=== PATIENT | female | born 1970 | race Caucasian/White ===

== ENCOUNTER 2019-07-01 13:37 | Emergency (ER) | payer BC ==
[~2019-07-01] VITALS: Ht 170.2 cm; Wt 62.1 kg
[2019-07-01] MEDS ORDERED: DEXAMETHASONE 4 MG TABLET PO ONE (15:00)
[2019-07-01] MEDS ORDERED: MECLIZINE 12.5 MG TABLET. PO ONE (15:00)
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
[2019-07-01] MEDS ORDERED: ORPH-16 PO (16:58)
[2019-07-01] MEDS ORDERED: NAPR-695 PO (16:58)
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
[2019-07-01 17:10] VITALS: BP 141/35
== END 2019-07-01 17:06 | disposition home or self-care (01) ==
LOC: ER 13:37
DX: M54.2 Cervicalgia (principal); M54.5 Low back pain; R42 Dizziness and giddiness; F17.210 Nicotine dependence, cigarettes, uncomplicated; Z88.0 Allergy status to penicillin; Y08.89XA Assault by other specified means, initial encounter; Y93.89 Activity, other specified; Y92.89 Other specified places as the place of occurrence of the external cause; Y99.8 Other external cause status
CPT/HCPCS: 70450; 72125; 99284; J8540; J8597

== ENCOUNTER 2019-08-07 18:00 | Emergency (ER) | payer BC ==
[~2019-08-07] VITALS: Ht 170.2 cm; Wt 62.1 kg
[~2019-08-07 18:00] MED LIST: NAPR-695 PO; ORPH-16 PO
[2019-08-07 18:05] VITALS: BP 114/77
--- NOTE | 2019-08-07 18:29 | PHYS DOC ---
Past History Past Medical History: Other Additional Past Medical Histor: epilepsy while Past Surgical History: Tubal ligation Smoking: Cigarettes Alcohol Use: None Drug Use: None Adult General Chief Complaint Chief Complaint: UPPER EXTREMITY PAIN [facility] HPI 49-year-old female presents with left shoulder pain and left hand numbness. The patient has had intermittent trouble with her neck mostly when she first wakes up in the morning for a few years. It is a little bit stiff but usually improves throughout the day. Over the last 4 days, the patient has had persistent left sided shoulder pain in the posterior aspect leading up to the neck. On the first day she had neck pain, the shoulder pain started after that. She is also noticed a decrease in strength in her left hand as well as a tingling sensation in her left fourth and fifth digit. The pain is a cramping and it radiates down her arm. Since it has not gone away as it usually does, she thought she should have it evaluated. She has not had any imaging of her neck, shoulder, or arm. She has not done any physical therapy. She has no known injuries. She denies trauma or falls. She denies fever or chills. Review of Systems Review of Systems Constitutional: Denies fever or chills [] Eyes: Denies change in visual acuity, redness, or eye pain [] HENT: Denies nasal congestion or sore throat [] Respiratory: Denies cough or shortness of breath [] Cardiovascular: No additional information not addressed in HPI [] GI: Denies abdominal pain, nausea, vomiting, bloody stools or diarrhea [] : Denies dysuria or hematuria [] Musculoskeletal: Left shoulder pain[] Integument: Denies rash or skin lesions [] Neurologic: Decreased strength in the left hand. Tingling left fourth and fifth digit. Denies headache. [] Endocrine: Denies polyuria or polydipsia [] All other systems were reviewed and found to be within normal limits, except as documented in this note. Allergies Allergies Allergies Coded Allergies Type Severity Reaction Last Updated Verified Penicillins Allergy Intermediate hives 07/01/19 No Physical Exam Physical Exam Constitutional: Well developed, well nourished, no acute distress, non-toxic appearance. [] HENT: Normocephalic, atraumatic, bilateral external ears normal, oropharynx moist, no oral exudates, nose normal. [] Eyes: PERRLA, EOMI, conjunctiva normal, no discharge. [] Neck: decreased rotation due to pain, mild paraspinal tenderness on the left C6- T1. [] Cardiovascular:Heart rate regular rhythm, no murmur [] Lungs & Thorax: Bilateral breath sounds clear to auscultation [] Abdomen: Bowel sounds normal, soft, no tenderness, no masses, no pulsatile masses. [] Skin: Warm, dry, no erythema, no rash. [] Back: No tenderness, no CVA tenderness. [] Extremities: No tenderness, no cyanosis, no clubbing, ROM intact, no edema. [] Neurologic: Alert and oriented X 3, normal motor function, normal sensory function, no focal deficits noted. Slightly decreased strength on the left hand versus the right. [] Psychologic: Affect normal, judgement normal, mood normal. [] Current Patient Data Vital Signs Vital Signs Date Time Temp Pulse Resp B/P (MAP) Pulse Ox O2 Delivery O2 Flow Rate FiO2 08/07/19 18:05 98.3 91 16 99 Room Air EKG EKG [] Radiology/Procedures Radiology/Procedures [] Course & Med Decision Making Course & Med Decision Making Pertinent Labs and Imaging studies reviewed. (See chart for details) The patient's cervical x-rays does not show any fractures or dislocations, but she does have significant straightening of the cervical lordosis. She also has some spurring most significant C6 and C7. There appears to be some disc space narrowing which I suspect is related to her problem. Based on her history and physical exam, I believe she is having some irritation likely stemming from the neck. I will treat her with prednisone taper for 10 days. She'll follow up with her primary care physician. She is stable for discharge at this time [] Dragon Disclaimer Dragon Disclaimer This electronic medical record was generated, in whole or in part, using a voice recognition dictation system. Departure Departure: Impression: Primary Impression: Cervical radiculopathy Disposition: 01 HOME, SELF-CARE Condition: STABLE Referrals: PCP,MERNA (PCP) Patient Instructions: Cervical Radiculopathy, [id number] Scripts Prednisone (PREDNISONE) 10 Mg Tablet 10 MG PO UD for PREDNISONE TAPER, #27 TAB 0 Refills Take 4 tablets by mouth daily x 3 days, then take 3 tablets by mouth daily x 3 days, then take 2 tablet by mouth daily x 2 days, then take 1 tablet by mouth daily x 2 days, then stop. Prov: TESHA SHEPHERD DO 08/07/19 TESHA SHEPHERD DO Aug 07, 2019 18:29
[2019-08-07] MEDS ORDERED: PRED-220 PO (19:16)
[2019-08-07] MEDS ORDERED: predniSONE 10 MG TABLET PO ONE (19:30)
--- NOTE | 2019-08-07 19:47 | RAD ---
CERVICAL SPINE 2-3V DATE: 08/07/2019 6:24 PM INDICATION: Neck pain, hand numbness COMPARISON: None. FINDINGS: The cervical spine is visualized to the level of the cervicothoracic junction on the lateral views. Bones/Alignment: No evidence of acute fracture. Straightening of the normal cervical lordosis. Normal alignment of the lateral masses of C1 on C2. Joints: Multilevel degenerative disc disease, worst and moderate at C6-7. The facets are normally aligned. Soft tissue: No significant prevertebral soft tissue swelling. IMPRESSION: No evidence of acute fracture. Electronically signed by: Biju Sumner MD (08/07/2019 7:44 PM) [id number]
== END 2019-08-07 19:42 | disposition home or self-care (01) ==
LOC: ER 18:00
DX: M54.12 Radiculopathy, cervical region (principal); F17.210 Nicotine dependence, cigarettes, uncomplicated; Z88.0 Allergy status to penicillin
CPT/HCPCS: 72040; 99284; J7512

== ENCOUNTER 2021-02-11 10:08 | Emergency (ER) | payer BC ==
[~2021-02-11] VITALS: Ht 167.6 cm; Wt 71.0 kg
[~2021-02-11 10:08] MED LIST changes: +PRED-220 PO
[2021-02-11 10:21] VITALS: BP 112/70
[2021-02-11] MEDS ORDERED: PRED-220 PO (12:01)
[2021-02-11] MEDS ORDERED: CYCL-331 PO (12:01)
--- NOTE | 2021-02-11 12:02 | PHYS DOC ---
Past History Past Medical History: Seizure Additional Past Medical Histor: epilepsy while Past Surgical History: Tubal ligation Smoking: Cigarettes Alcohol Use: None Drug Use: None General Adult EDM: Chief Complaint: BACK PAIN OR INJURY HPI: HPI: 50-year-old female presents with low back pain. 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 They advised that she go and get checked out. The patient had a less severe injury 3 days ago when she was moving a box and felt a bit of a "tweak" in her low back but it was not significant enough to prevent her from continuing with her day. She was a little bit sore at home. She has had some trouble sleeping due to discomfort the last couple of nights. She denies numbness, tingling, or altered sensation. No previous back history. She has no other complaints this time. Review of Systems: Review of Systems: Constitutional: Denies fever or chills Eyes: Denies change in visual acuity HENT: Denies nasal congestion or sore throat Respiratory: Denies cough or shortness of breath Cardiovascular: Denies chest pain or edema GI: Denies abdominal pain, nausea, vomiting, bloody stools or diarrhea : Denies dysuria Musculoskeletal: Low back pain Integument: Denies rash Neurologic: Denies headache, focal weakness or sensory changes Endocrine: Denies polyuria or polydipsia Lymphatic: Denies swollen glands Psychiatric: Denies depression or anxiety Allergies: Allergies: Allergies Coded Allergies Type Severity Reaction Last Updated Verified Penicillins Allergy Intermediate hives 02/11/21 No Physical Exam: PE: Constitutional: Well developed, well nourished, no acute distress, non-toxic appearance. [] HENT: Normocephalic, atraumatic, bilateral external ears normal, oropharynx moist, no oral exudates, nose normal. [] Eyes: PERRLA, EOMI, conjunctiva normal, no discharge. [] Neck: Normal range of motion, no tenderness, supple, no stridor. [] Cardiovascular: Heart rate regular rhythm, no murmur [] Lungs & Thorax: Bilateral breath sounds clear to auscultation [] Abdomen: Bowel sounds normal, soft, no tenderness, no masses, no pulsatile masses. [] Skin: Warm, dry, no erythema, no rash. [] Back: Point tenderness of the left sacroiliac joint. [] Extremities: No tenderness, no cyanosis, no clubbing, ROM intact, no edema. [] Neurologic: Alert and oriented X 3, normal motor function, normal sensory function, no focal deficits noted. [] Psychologic: Affect normal, judgement normal, mood normal. [] Current Patient Data: Vital Signs: Vital Signs Date Time Temp Pulse Resp B/P (MAP) Pulse Ox O2 Delivery O2 Flow Rate FiO2 02/11/21 10:21 97.9 86 18 112/70 (84) 100 EKG: EKG: [] Radiology/Procedures: Radiology/Procedures: [] Heart Score: C/O Chest Pain: N/A Risk Factors: Risk Factors: DM, Current or recent (<one month) smoker, HTN, HLP, family history of CAD, obesity. Risk Scores: Score 0 - 3: 2.5% MACE over next 6 weeks - Discharge Home Score 4 - 6: 20.3% MACE over next 6 weeks - Admit for Clinical Observation Score 7 - 10: 72.7% MACE over next 6 weeks - Early Invasive Strategies Course & Med Decision Making: Course & Med Decision Making Pertinent Labs and Imaging studies reviewed. (See chart for details) The patient appears to have left sacroiliitis. I will treat with Flexeril and prednisone. The patient stable for discharge at this time. [] Eliezer Disclaimer: Eliezer Disclaimer: This electronic medical record was generated, in whole or in part, using a voice recognition dictation system. Departure Departure: Impression: Primary Impression: Sacroiliac joint dysfunction of left side Disposition: HOME / SELF CARE / HOMELESS Condition: STABLE Referrals: PCP,MERNA (PCP) Patient Instructions: Sacroiliac Joint Dysfunction Scripts Prednisone (PREDNISONE) 10 Mg Tablet 50 MG PO DAILY for back pain for 4 Days, #20 TAB Prov: TESHA SHEPHERD DO 02/11/21 Cyclobenzaprine Hcl (CYCLOBENZAPRINE HCL) 10 Mg Tablet 1 TAB PO TID PRN for MUSCLE SPASMS, #30 TAB Prov: TESHA SHEPHERD DO 02/11/21 TESHA SHEPHERD DO February 11, 2021 12:02
== END 2021-02-11 12:07 | disposition home or self-care (01) ==
LOC: ER 10:08
DX: M53.3 Sacrococcygeal disorders, not elsewhere classified (principal); F17.210 Nicotine dependence, cigarettes, uncomplicated; Z88.0 Allergy status to penicillin; Z98.51 Tubal ligation status
CPT/HCPCS: 99283-25

== ENCOUNTER → 2021-08-02 | Outpatient (CLI) | payer BC ==
[~2021-08-02] MED LIST changes: +CYCL10TA19 PO
--- NOTE | 2021-08-02 17:08 | RAD ---
EXAM: Bilateral lower extremity arterial Doppler sonogram. HISTORY: Pain in heels. Cigarette smoking. Peripheral vascular disease. TECHNIQUE: Orozco scale and color Doppler sonographic imaging of the lower extremity arteries with spec tral analysis was performed. COMPARISON: None. FINDINGS: There is an elevated peak systolic velocity within the right common femoral artery, measuri ng 189 cm/s. There is an upper limits of normal peak systolic velocity within the left common femoral artery, measuring 150 cm/s. There aren't normal peak systolic velocities throughout the remainder of the lower extremity arteries. There are normal triphasic waveforms throughout the lower extent the a rteries, with exception of a monophasic waveform within the left dorsalis pedis artery. IMPRESSION: 1. Mildly elevated peak systolic velocity within the right common femoral artery, suggesting mild russell nosis. 2. Monophasic waveform within the left dorsalis pedis artery, suggesting low flow due to proximal russell nosis. 3. No additional evidence of stenosis and no evidence of arterial occlusion. Electronically signed by: Amber Moreira MD (08/02/2021 5:05 PM) [id number]
== END ==
LOC: US 15:34
PROVIDERS: ATTEND Podiatrist Foot & Ankle Surgery
DX: I73.9 Peripheral vascular disease, unspecified (principal); M72.2 Plantar fascial fibromatosis
CPT/HCPCS: 93925